=== PATIENT | male | born 1995 | race Hispanic/Latino ===

== ENCOUNTER 2017-01-06 22:44 | Emergency (ER) | payer OTHER ==
[~2017-01-06 22:44] MED LIST: OMEP20TA86 PO
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
[2017-01-06 22:53] VITALS: BP 132/66; PULSE 91; RESP 22; O2SAT 97
[2017-01-06 22:59] LABS: BASOPHILS % (AUTO) 0.8 % (0-3); EOSINOPHILS % (AUTO) 4.7 % (0-5); MONOCYTES % (AUTO) 8.9 % (4-12); Mean Corpuscular Hemoglobin 27.3 pg (27.0-35.0); NEUTROPHILS % (AUTO) 29.8 % (40-74); Platelet Count 199 bil/L (150-400)
[2017-01-06] MEDS ORDERED: OXCA300T2 PO (23:25)
[2017-01-06] MEDS ORDERED: ALBU18HF (23:25)
[2017-01-06 23:29] VITALS: BP 118/62; PULSE 67; RESP 18; O2SAT 97
[2017-01-06] MEDS ORDERED: OXcarbazepine 300 mg Tablet PO ONE (23:45)
[2017-01-07] MEDS ORDERED: 0.9% Sodium Chloride 1,000 ML IV ONE (00:05)
[2017-01-07] MEDS ORDERED: TdaP Vaccine 0.5 mL Inj IM ONE (01:20)
[2017-01-07 01:39] VITALS: BP 109/57; PULSE 70; RESP 25; O2SAT 100
--- NOTE | 2017-01-07 08:31 | DRSVH ---
PROCEDURE: CT BRAIN WITHOUT CONTRAST ([id number]) INDICATIONS: head injury, seizure, altered TECHNIQUE: Noncontrast 4.5 mm thick angled axial sections acquired from the foramen magnum to the vertex, with c oronal reformats. COMPARISON: [facility], MR, SEIZURE BRAIN W & W/O CONT, 06/03/2013, 11:51. FINDINGS: Image quality: Excellent. CSF spaces: Basal cisterns are patent. Small left anterior temporal arachnoid cyst is not significan tly changed compared to prior MRI. Ventricles are normal in size and shape. Brain: No midline shift. No intracranial masses or hemorrhage. Michelle-white matter interface is norm al. Skull and face: Calvarium and visualized facial bones are intact, without suspicious lesions. Small left frontal scalp/periorbital facial hematoma is noted. Sinuses: Visualized sinuses and mastoids are clear. IMPRESSION: No acute intracranial disease process. Dictated by: Silvia Landaverde MD, PhD on 01/07/2017 at 8:26 Approved by: Silvia Landaverde MD, PhD on 01/07/2017 at 8:29
== END 2017-01-07 01:40 | disposition home or self-care (01) ==
LOC: SED 22:44
DX: G40.909 Epilepsy, unspecified, not intractable, without status epilepticus (principal); S01.112A Laceration without foreign body of left eyelid and periocular area, initial encounter; W18.30XA Fall on same level, unspecified, initial encounter; W22.8XXA Striking against or struck by other objects, initial encounter; Y92.481 Parking lot as the place of occurrence of the external cause; Y93.02 Activity, running; Y99.8 Other external cause status; J45.909 Unspecified asthma, uncomplicated
CPT/HCPCS: 12011; 70450; 80053; 80156; 85025; 93005; 99285; J7030

== ENCOUNTER 2017-01-28 05:12 | Emergency (ER) | payer OTHER ==
[~2017-01-28] VITALS: Ht 182.9 cm; Wt 72.7 kg
[~2017-01-28 05:12] MED LIST changes: +ALBU18HF; +OXCA300T2 PO
[2017-01-28 05:14] VITALS: BP 118/69; PULSE 75; RESP 18; O2SAT 99
--- NOTE | 2017-01-28 05:35 | ED.REPORT ---
HPI-Seizure Date of Service Jan 28, 2017 ED Provider: Dr. House 21 y/o male with a hx of epilepsy, asthma and drug abuse presents to the ED complaining of multiple seizures which occurred at 02:00 and 04:00 this morning after forgetting a dose of his regular Oxcarbazepine. Associated sx include nausea, vomiting, abd pain, somnolence and right-sided headache. He denies LOC or injury to the head, focal numbness or weakness, fever, and diplopia. He was seen in the ED on 01/06/17 for a seizure which occurred after a head injury caused by a ground level fall at which time workup including CT head was negative. Nursing Notes Stated Complaint: SEIZURE Chief Complaint: Neuro Symptoms/ Deficits Nursing Notes Reviewed: Yes Allergies: Coded Allergies: No Known Allergies (Verified Allergy, Unknown, 07/08/16) Scheduled Omeprazole (Omeprazole) 20 Mg Tablet.dr 20 MG PO BID Oxcarbazepine (Oxcarbazepine) 300 Mg Tablet 900 MG PO BID Miscellaneous Medications Albuterol Sulfate (Ventolin HFA Inhaler) 200 Puff/18 Gm Inhaler General Time Seen by Provider: 05:35 Chief Complaint Chief Complaint: Seizure, generalized Hx Obtained From: Patient Arrived By: Walk-in Onset Occurred: 5 - 8 hours ago Symptom Duration: 1 - 15 minutes Progression Since Onset: Intermittent Location: : Head Quality: Painful Severity: Current: Moderate Severity: Maximum: Moderate Recent Healthcare: Recent doctor visit Similar Sx Previous: Yes Past Medical History Past Medical History Epilepsy Drug abuse Reports: Asthma Past Surgical History None reported Family History None reported Smoking History Never Smoker Social History Alcohol Use: Denies alcohol use Drug Use: Denies drug use Other Social History: Good social support, Lives with parents, Local resident Ambulatory Status Independent Review of Systems + somnolence Constitutional: Denies: Fever Eyes: Denies: Diplopia Neurologic: Reports: Headache, Seizure, Denies: Change LOC, Focal weakness, Numbness Complete sys rev & neg: except as marked. GI: Reports: Abdominal pain, Nausea, Vomiting Physical Exam Initial Vital Signs Vital Signs (First) Date Time Temp Pulse Resp B/P Pulse Ox O2 Delivery O2 Flow Rate FiO2 01/28/17 05:14 36.1 75 18 118/69 99 01/28/17 06:17 Room Air Initial VS: Reviewed, Vital signs normal ENT: Mucous membranes moist, Conjunctiva normal, No scleral icterus Abdomen / GI: Soft, Non-tender Extremities: Vascular intact, Neuro intact, No swelling, No tenderness Skin: Warm, Dry, No cyanosis General/Constitutional: Awake, Alert, Well hydrated, Cooperative, Not toxic appearing Behavior: Positive: Tearful Appearance / Presentation: Positive: Uncomfortable Possibly intoxicated Neck: Atraumatic, Supple, No meningismus, Full range of motion Respiratory / Chest: Atraumatic, Breath sounds NL, Breath sounds = bilat, No respiratory distress, No rales, No rhonchi, No wheezing, No retractions Cardiovascular: Heart rate NL, Regular rhythm, Heart sounds NL, No gallop, No murmurs, No rubs Neurologic: Oriented X3, Speech NL No gross sided deficits appreciated Not very cooperative with neuro exam Head / Eyes: Normocephalic, PERRL Unconsistent disconjugate gaze Upper Extremity / MS: Atraumatic, Full range of motion Lower Extremity / Pelvis / MS: Atraumatic, Full range of motion Interpretation & Diagnostics Lab Results Interpretation Result Diagram: 01/28/17 0555 Test 01/28/17 05:55 White Blood Count 6.4th/mm3 (3.8-10.1) Red Blood Count 5.32mil/mm3 (4.40-5.80) Hemoglobin 14.3g/dL (13.8-17.2) Hematocrit 42.4% (41.0-50.0) Mean Corpuscular Volume 79.7fL (81-100) Mean Corpuscular Hemoglobin 26.9pg (27.0-35.0) Mean Corpuscular Hemoglobin Concent 33.7% (32.0-37.0) Red Cell Distribution Width 13.0% (12.3-15.4) Platelet Count 160bil/L (150-400) Neutrophils (%) (Auto) 63.2% (40-74) Lymphocytes (%) (Auto) 26.4% (14-46) Monocytes (%) (Auto) 7.8% (4-12) Eosinophils (%) (Auto) 1.7% (0-5) Basophils (%) (Auto) 0.6% (0-3) Re-Eval/Medical Decision Med Decision/Clinical Course 21-year-old with history of seizures and medical noncompliance as well as a history of substance abuse, presents after two seizures this morning. He reportedly missed a single dose of oxcarbazepine. Level is pending presently. He also complains of right-sided headache and is difficult to evaluate neurologically, as he is somewhat anxious and overwrought and still appears postictal. He is signed out at [address] Yun with labs and CT pending. Source of Hx: Old records Counseled Regarding: Diagnosis, Lab results Discharge & Departure Impression: Primary Impression: Seizure Discharge Condition All VS Reviewed: Yes Condition: Stable Referrals: Chela Goldsmith MD (PCP) Care Transferred to: Dr. Yun Care Transferred at: 06:00 Scribe Attestation Portions of this note were transcribed by Tamir Josue and Ronaldo Lynn. I, personally performed the history, physical exam and medical decision- making;I reviewed and confirmed the accuracy of the information in the transcribed note. Signed by Tamir Lynn, Scribe. 01/28/17 0600 copies to: Chela Goldsmith MD, Christopher W MD Jan 28, 2017 05:35 Tamir Josue Jan 28, 2017 05:43 RONALDO LYNN Jan 28, 2017 06:01
[2017-01-28] MEDS ORDERED: 0.9% Sodium Chloride 1,000 ML IV ONE (05:42)
[2017-01-28] MEDS ORDERED: Ondansetron 2 mg/mL 2 mL Inj IVPUSH ONE (05:45)
[2017-01-28 06:12] LABS: BASOPHILS % (AUTO) 0.6 % (0-3); EOSINOPHILS % (AUTO) 1.7 % (0-5); MONOCYTES % (AUTO) 7.8 % (4-12); Mean Corpuscular Hemoglobin 26.9 pg (27.0-35.0); Mean Corpuscular Volume 79.7 fL (81-100); NEUTROPHILS % (AUTO) 63.2 % (40-74); Platelet Count 160 bil/L (150-400)
[2017-01-28 06:17] VITALS: BP 111/47; PULSE 49; RESP 17; O2SAT 99
[2017-01-28 06:23] LABS: INR 1.07 ratio
[2017-01-28 06:56] VITALS: BP 118/63; PULSE 64; RESP 13; O2SAT 96
[2017-01-28 07:12] LABS: APPEARANCE,URINE CLEAR (CLEAR,HAZY); COLOR,URINE YELLOW (YELLOW); OCCULT BLOOD,URINE NEGATIVE (NEGATIVE); PH,URINE 6.5 (5.0-8.0); UROBILINOGEN,URINE NORMAL (NORMAL)
[2017-01-28 08:00] VITALS: BP 115/63; PULSE 61; RESP 13; O2SAT 99
--- NOTE | 2017-01-28 08:21 | DRSVH ---
PROCEDURE: CT BRAIN WITHOUT CONTRAST ([id number]) INDICATIONS: 21 year-old male with right headaches and seizure. TECHNIQUE: Noncontrast 4.5 mm thick angled axial sections acquired from the foramen magnum to the vertex, with c oronal reformats. COMPARISON: [facility], CT, CT BRAIN WO CON, 01/06/2017, 23:01. FINDINGS: Preliminary interpretation rendered by [facility]. Image quality: Excellent. CSF spaces: Basal cisterns are patent. No extra-axial fluid collections. Ventricles are normal in size and shape. Brain: No midline shift. No intracranial masses or hemorrhage. Michelle-white matter interface is norm al. Skull and face: Calvarium and visualized facial bones are intact, without suspicious lesions. Sinuses: Visualized sinuses and mastoids are clear. IMPRESSION: No acute intracranial abnormalities. No significant discrepancy with preliminary [facility] report. Dictated by: Carmelo Roberto M.D. on 01/28/2017 at 8:17 Approved by: Carmelo Roberto M.D. on 01/28/2017 at 8:19
[2017-01-28 09:30] VITALS: BP 124/66; PULSE 60; RESP 14; O2SAT 97
== END 2017-01-28 09:31 | disposition home or self-care (01) ==
LOC: SED 05:12
DX: G40.909 Epilepsy, unspecified, not intractable, without status epilepticus (principal); T42.1X6A Underdosing of iminostilbenes, initial encounter; F12.10 Cannabis abuse, uncomplicated; J45.909 Unspecified asthma, uncomplicated
CPT/HCPCS: 36415; 70450; 80053; 81001; 82542; 85025; 85610; 96361; 96374; 99285; G0480; J2405; J7030

== ENCOUNTER 2017-01-29 23:39 | Emergency (ER) | payer OTHER ==
[~2017-01-29] VITALS: Ht 182.9 cm; Wt 75.0 kg
[2017-01-29 23:43] VITALS: BP 119/70; PULSE 72; RESP 20; O2SAT 99
--- NOTE | 2017-01-29 23:57 | ED.REPORT ---
HPI-General Illness Date of Service Jan 29, 2017 ED Provider: Shivam Rubin DO Patient is a 21 year old male with a history of epilepsy and drug abuse who presents to the ED requesting a dose of his Oxcarbazepine after he ran out earlier today. The patient states that he has a new prescription, which he simply has to shrimp picker at the pharmacy tomorrow. The patient denies having a seizure, loss of consciousness, or any other medical complaints at this time. Nursing Notes Stated Complaint: RAN OUT OF SEIZURE MEDS Chief Complaint: General Complaint Nursing Notes Reviewed: Yes Allergies: Coded Allergies: No Known Allergies (Verified Allergy, Unknown, 01/29/17) Scheduled Omeprazole (Omeprazole) 20 Mg Tablet.dr 20 MG PO BID Oxcarbazepine (Oxcarbazepine) 300 Mg Tablet 900 MG PO BID Miscellaneous Medications Albuterol Sulfate (Ventolin HFA Inhaler) 200 Puff/18 Gm Inhaler General Time Seen by MD: 23:57 Chief Complaint Medication refill Hx Obtained From: Patient Arrived By: Walk-in Sudden in Onset?: No Onset Occurred: 5 - 8 hours ago Symptom Duration: Since onset Severity: Current: No pain currently Severity: Maximum: No pain Recent Healthcare: No recent doctor visit, No recent hospitalization Similar Sx Previous: Yes Past Medical History Past Medical History Epilepsy Drug abuse Reports: Asthma Past Surgical History None reported Family History None reported Smoking History Never Smoker Social History Alcohol Use: Denies alcohol use Drug Use: Denies drug use Other Social History: Good social support, Lives with parents, Local resident Ambulatory Status Independent Review of Systems Full Review of Systems Constitutional: Denies: Chills, Fever Neurologic: Denies: Change LOC, Seizure, Shaking Complete sys rev & neg: except as marked. Physical Exam Vital Signs Vital Signs Date Time Temp Pulse Resp B/P Pulse Ox O2 Delivery O2 Flow Rate FiO2 01/30/17 00:22 36.6 74 18 120/72 98 Room Air 01/29/17 23:43 36.1 72 20 119/70 99 Room Air Initial VS: Reviewed Head / Eyes: Atraumatic, Normocephalic, PERRL ENT: Conjunctiva normal, No scleral icterus Neck: Supple, Full range of motion Respiratory: Breath sounds normal, Clear to auscultation, No respiratory distress Cardiovascular: Regular rate & rhythm, Heart sounds normal Extremities: Vascular intact, Neuro intact, No swelling, No tenderness Skin: Warm, Dry, No cyanosis Neurologic: Alert, Oriented, Nonfocal Psychiatric: Mood/affect normal, Behavior normal, Normal thought content General/Constitutional: Awake, Alert, No acute distress Re-Eval/Medical Decision Source of Hx: Old records Time of Eval: 00:05 Patient Status: Condition improved Re-Evaluation/Progress Note: Patient will be given a dose of his Oxcarbazepine and be discharged home. He should shrimp picker his new prescription tomorrow as planned. Discharge instructions and follow-up discussed. All questions were addressed. Return to the ED warnings given. Counseled Regarding: Diagnosis, Need for follow-up, When/why to return to ED Discharge & Departure Primary Impression: Medication refill Additional Impression: Seizure disorder Disposition: Home Discharge Condition All VS Reviewed: Yes Condition: Stable Patient Instructions: Epilepsy (ED) Additional Instructions: You were given a dose of Oxycarbazepine in the emergency department tonight. Fill your prescription tomorrow as planned. Take your seizure medication as prescribed and follow your seizure protocol. Do not drive. Follow-up with your neurologist in the next week. Return to the Emergency Department if you develop any new or worsening symptoms. Referrals: Chela Goldsmith MD (PCP) Scribe Attestation Portions of this note were transcribed by Vivi Lau. I, Dr. Rubin personally performed the history, physical exam and medical decision-making; I reviewed and confirmed the accuracy of the information in the transcribed note. Signed by: Jus Joyce, 01/30/2017 0051 copies to: Chela Goldsmith MD, Todd P DO Jan 29, 2017 23:57 Vivi Lau Jan 30, 2017 00:10
[2017-01-30] MEDS ORDERED: OXcarbazepine 300 mg Tablet PO ONE (00:05)
[2017-01-30 00:22] VITALS: BP 120/72; PULSE 74; RESP 18; O2SAT 98
== END 2017-01-30 00:23 | disposition home or self-care (01) ==
LOC: SED 23:39
DX: Z76.0 Encounter for issue of repeat prescription (principal)

== ENCOUNTER 2017-05-24 17:52 | Emergency (ER) | payer OTHER ==
[~2017-05-24] VITALS: Ht 182.9 cm; Wt 79.5 kg
[2017-05-24 17:55] VITALS: BP 118/64; PULSE 69; RESP 16; O2SAT 97
[2017-05-24] MEDS ORDERED: OXcarbazepine 300 mg Tablet PO ONE (18:05)
--- NOTE | 2017-05-24 18:19 | ED.REPORT ---
HPI-Medication Refill Date of Service May 24, 2017 ED Provider: Doc,Ed MD History of Present Illness: needs a refill on seizure medication trilepatal 900 mg bid. deann in [facility] is primary care. Appointment in June for refill. Ran out 2 days ago Nursing Notes Stated Complaint: SEIZURES/NEEDS MEDS Chief Complaint: Seizure Nursing Notes Reviewed: Yes Allergies: Coded Allergies: No Known Allergies (Verified Allergy, Unknown, 05/24/17) Scheduled Omeprazole (Omeprazole) 20 Mg Tablet.dr 20 MG PO BID Oxcarbazepine (Oxcarbazepine) 300 Mg Tablet 900 MG PO BID Miscellaneous Medications Albuterol Sulfate (Ventolin HFA Inhaler) 200 Puff/18 Gm Inhaler General Time Seen by Provider: 18:19 Chief Complaint Ran out of medication (ran out 2 days ago) Hx Obtained From: Patient Onset Occurred: Yesterday Symptom Duration: Since onset Past Medical History Past Medical History Epilepsy Drug abuse Reports: Asthma Past Surgical History None reported Family History None reported Smoking History Never Smoker Social History Alcohol Use: Denies alcohol use Drug Use: Denies drug use Other Social History: Good social support, Lives with parents, Local resident Occupation lives with girlfriend, work at [employer] 05/24/2017 Ambulatory Status Independent Review of Systems Basic Review of Systems Eyes: Vision NL, No discharge : No dysuria, No frequency Skin: No bruising, No rash, No itch Psychiatric: Normal thought content Physical Exam Initial Vital Signs Vital Signs (First) Date Time Temp Pulse Resp B/P Pulse Ox O2 Delivery O2 Flow Rate FiO2 05/24/17 17:55 37.2 69 16 118/64 97 Room Air Initial VS: Reviewed, Vital signs normal General/Constitutional: Well-developed, Well-nourished Head / Eyes: Atraumatic, Normocephalic, PERRL ENT: Mucous membranes moist, Conjunctiva normal, No scleral icterus Neck: Supple, Non-tender, Full range of motion Respiratory: Breath sounds normal, Clear to auscultation, No respiratory distress Cardiovascular: Regular rate & rhythm, Heart sounds normal, Intact distal pulses Abdomen / GI: Soft, Non-tender, No guarding, No rebound, No distention Back: No CVA tenderness Lymphatic: No lymphadenopathy Extremities: Vascular intact, Neuro intact, No swelling, No tenderness Skin: Warm, Dry, No cyanosis Neurologic: Alert, Oriented, Nonfocal Psychiatric: Mood/affect normal, Behavior normal, Normal thought content General/Constitutional: Awake, Alert, Well appearing, Well developed, Well hydrated, Well nourished, Cooperative, Not toxic appearing Respiratory / Chest: Breath sounds NL, Breath sounds = bilat, No respiratory distress, No rales, No rhonchi, No wheezing Cardiovascular: Heart rate NL, Regular rhythm, Heart sounds NL, Peripheral circulation NL Abdomen: Atraumatic, Soft, Non-tender, McBurney's non-tender Neurologic: Oriented X3, Speech NL, No motor deficits, No sensory deficits, Reflexes equal bilat, Cerebellar NL, Gait NL Re-Evaluation & MDM Med Decision/Clinical Course 21 year old male presents for refill of seizure medication after running out 2 days ago. He does have an appointment with Dr. Goldsmith for a refill. He thinks it is is early June but he is not sure. No sign of active seizures Patient Discharge & Departure Impression: Primary Impression: Medication refill Disposition: Home Additional Instructions: Your medication has been refilled for 90 days. You can get any amount you are able to afford. You can get 30 days or 60 days or the full 90 days. Please keep the appointment with primary care to get ongoing refills. Referrals: Chela Goldsmtih MD (PCP) EDSupervising Provider for [facility]: Lauren Frazier MD copies to: Chela Goldsmith MD, Sue ARNP May 24, 2017 18:19
[2017-05-24 18:35] VITALS: BP 118/64; PULSE 69; RESP 16; O2SAT 97
== END 2017-05-24 18:35 | disposition home or self-care (01) ==
LOC: SED 17:52
DX: Z76.0 Encounter for issue of repeat prescription (principal); J45.909 Unspecified asthma, uncomplicated

== ENCOUNTER 2017-07-01 16:42 | Emergency (ER) | payer OTHER ==
[2017-07-01 16:56] VITALS: BP 110/70; PULSE 68; RESP 18; O2SAT 99
--- NOTE | 2017-07-01 17:07 | ED.REPORT ---
HPI-Seizure Date of Service Jul 01, 2017 ED Provider: Cale Velazquez MD Pt is a 21 y/o male with a history of epilepsy and seizures who presents to the ED c/o two seizures onset today. Per pt's girlfriend, pt had one seizure at 0500 while sleeping and another 30 minutes prior to arrival at the ED while riding as a passenger in the car. He takes oxcarbazepine, but has been out of his medication for two days because he couldn't get to the pharmacy in [place]. Pt's girlfriend reports that his seizures last one minute in length , and that he acts like he has passed out and will snore during the episodes. His girlfriend also states that during the episodes, he bit his tongue and one side of his face droops. Additional symptoms include headache, nausea and vomiting. Nursing Notes Stated Complaint: SEIZURE Chief Complaint: Seizure Nursing Notes Reviewed: Yes ([employer], [employer] no reconciled) Allergies: Coded Allergies: No Known Allergies (Verified Allergy, Unknown, 05/24/17) Scheduled Omeprazole (Omeprazole) 20 Mg Tablet.dr 20 MG PO BID Oxcarbazepine (Oxcarbazepine) 300 Mg Tablet 900 MG PO BID Miscellaneous Medications Albuterol Sulfate (Ventolin HFA Inhaler) 200 Puff/18 Gm Inhaler General Time Seen by Provider: 17:15 Chief Complaint Chief Complaint: Seizure, focal Hx Obtained From: Patient Arrived By: Walk-in Onset Occurred: 9 - 12 hours ago Quality: Painful Severity: Current: Mild Severity: Maximum: Moderate Recent Healthcare: Recent doctor visit Similar Sx Previous: Yes Past Medical History Past Medical History Epilepsy Drug abuse Reports: Asthma Past Surgical History None reported Family History None reported Smoking History Never Smoker Social History Alcohol Use: Denies alcohol use Drug Use: Denies drug use Other Social History: Good social support, Lives with parents, Local resident Occupation lives with girlfriend, work at [employer] 05/24/2017 Ambulatory Status Independent Review of Systems Bit his tongue during seizure Neurologic: Reports: Headache, Seizure Complete sys rev & neg: except as marked. GI: Reports: Nausea, Vomiting Physical Exam Initial Vital Signs Vital Signs (First) Date Time Temp Pulse Resp B/P Pulse Ox O2 Delivery O2 Flow Rate FiO2 07/01/17 16:56 36.1 68 18 110/70 99 Room Air Initial VS: Reviewed, Vital signs normal Extremities: Vascular intact, Neuro intact, No swelling, No tenderness Skin: Warm, Dry, No cyanosis Psychiatric: Mood/affect normal, Behavior normal, Normal thought content General/Constitutional: Awake, Alert, Not toxic appearing Sitting upright, retching into bag Neck: Supple, Full range of motion Respiratory / Chest: Atraumatic, Breath sounds NL, Breath sounds = bilat, No respiratory distress Cardiovascular: Heart rate NL, Regular rhythm, Heart sounds NL Neurologic: Oriented X3, Speech NL Answering questions ENT: Atraumatic, Airway patent Small contusion on tip of tongue Psychiatric: Affect NL, Mood NL Does not appear intoxicated or in withdrawal Re-Eval/Medical Decision Med Decision/Clinical Course This is a 21-year-old male with a long-standing seizure disorder normally on oxcarbazepine reports his prescription ran out so he is out for a couple of days , just got a refill in this plane restart today when he had 2 seizures today. A moderately prolonged postictal phase sometimes happen, and had nausea and a headache which happens after seizure some time to time as well. He had no specific trauma, seizures or weight by his partner who is here. Tongue, but has no active bleeding. On exam he appears uncomfortable, and is retching. There is no visible signs of trauma his head, no focal deficits. He received a dose of Dilaudid and Phenergan with improvement. He is unable to take his seizure medicine and single dose lorazepam. He reports his prescription and already been called into pharmacy, so he has medication now to take-given he been missing a few doses of medicines I did not send levels. The patient has no flax did necessitate laborator testing or imaging. She recovered uneventfully and is discharged in much improved condition Source of Hx: Old records Re-Evaluation/Progress : Time of Eval: 18:39 Patient Status: Condition improved Re-Evaluation/Progress Note: Patient rechecked. Discussed plan for discharge. Patient understands and agrees with plan. F/U instructions and RTER warnings given. All questions addressed at this time. Differential Diagnosis: Positive: Seizure disorder, Seizure, tonic-clonic, Negative: Anticonvulsant withdrawal, Hyponatremia, Hypoxemia, Intracranial bleed, Intracranial mass/lesion, Seizure, alcohol withdraw Counseled Regarding: Diagnosis, Lab results, Need for follow-up, When/why to return to ED Discharge & Departure Impression: Primary Impression: Seizure Disposition: Home Discharge Condition All VS Reviewed: Yes Condition: Stable Additional Instructions: 1. Resume your oxcarbazepine 900mg twice a day. 2. Rest today. 3. You received a pain medicine and an anti-seizure medication in the ED that does cause some drowsiness. 4. Return if new or worsening symptoms. 5. Follow up with your regular doctor in [place]. Referrals: Chela Goldsmith MD (PCP) Scribe Attestation Portions of this note were transcribed by Ale Coon. I, Dr. Velazquez, personally performed the history, physical exam and medical decision-making; I reviewed and confirmed the accuracy of the information in the transcribed note. Signed by: Jus Momin, 07/01/17. copies to: Chela Goldsmith MD, Matthew F MD Jul 01, 2017 17:07 Ale Coon Jul 01, 2017 17:40
[2017-07-01] MEDS ORDERED: HYDROmorphone 1 mg/mL Inj IM ONE (17:20)
[2017-07-01] MEDS ORDERED: OXcarbazepine 300 mg Tablet PO ONE (17:20)
[2017-07-01] MEDS ORDERED: LORazepam 1 mg Tablet PO ONE (17:20)
[2017-07-01] MEDS ORDERED: Promethazine 25 mg/mL Inj IM ONE (17:20)
== END 2017-07-01 20:07 | disposition home or self-care (01) ==
LOC: SED 16:42
DX: R56.9 Unspecified convulsions (principal)
CPT/HCPCS: 96372; 99284; J1170; J2550